=== PATIENT | female | born 1960 | race Hispanic/Latino ===

== ENCOUNTER → 2017-08-07 | Day surgery (SDC) | payer MEDICARE ==
[~2017-08-07] MED LIST: ABILIFY5 MG PO; ASPIR 8181 MG PO; BREO PO; CETIRIZINE HCL10 MG PO; CLONAZEPAM0.5 MG PO; CYMBALTA30 MG PO; FENTANYL CITRATE/PF 100MCG/2 ML INJ ONE; GABAPENTIN300 MG PO; IOPAMIDOL 200 MG/ML 20 ML VIAL IT ONE; IRON SUPPLEMEN325 MG PO; LAMOTRIGINE25 M1 PO; LEVOTHYROXINE50 MCG PO; LIDOCAINE HCL 1% 30ML-PF VIAL ONE; LISINOPRIL2.5 MG PO; METFORMIN HCL500 MG PO; METOPROLOL TART50 MG PO; MIDAZOLAM HCL 2 MG/2 ML VIAL ONE; NORCO 10-325 T1 EACH PO; PROPOFOL IV EMULSION 10 MG/ML 20 ML VIAL ONE; ROCURONIUM BROMIDE 10 MG/ML 5ML VIAL ONE; SUCCINYLCHOLINE 200 MG/10 ML SYR ONE; TRIAMCINOLONE ACET 40 MG/ML VIAL ONE; VIT C PO; VIT D3 PO; VITB12 PO
== END | disposition home or self-care (01) ==
LOC: OR 06:01
PROVIDERS: ATTEND Physical Medicine & Rehabilitation Pain Medicine
DX: M17.11 Unilateral primary osteoarthritis, right knee (principal); M94.261 Chondromalacia, right knee; M47.816 Spondylosis without myelopathy or radiculopathy, lumbar region; M46.1 Sacroiliitis, not elsewhere classified; M54.16 Radiculopathy, lumbar region; S90.32XA Contusion of left foot, initial encounter; M25.552 Pain in left hip; M25.551 Pain in right hip; M53.3 Sacrococcygeal disorders, not elsewhere classified; G47.33 Obstructive sleep apnea (adult) (pediatric); J44.9 Chronic obstructive pulmonary disease, unspecified; E11.9 Type 2 diabetes mellitus without complications; I10 Essential (primary) hypertension; E03.9 Hypothyroidism, unspecified; F32.9 Major depressive disorder, single episode, unspecified; X58.XXXA Exposure to other specified factors, initial encounter; Z68.37 Body mass index [BMI] 37.0-37.9, adult; Z91.81 History of falling
CPT/HCPCS: 20610; 36415; 76000; 82948; 93005; J2001; J2250; J3301; Q9966

== ENCOUNTER → 2017-12-25 | Day surgery (SDC) | payer MEDICARE ==
[2017-12-24 11:13] LABS: BASOPHILS # (AUTO) 0.1 (0.0-0.1); BASOPHILS % 0.6 % (0.0-1.0); EOSINOPHILS # (AUTO) 0.3 (0.0-0.4); EOSINOPHILS % 3.8 % (0.0-6.0); HEMATOCRIT 37.4 % (34.2-44.1); HEMOGLOBIN 12.7 g/dL (12.0-16.0); LYMPHOCYTES # (AUTO) 2.5 (1.0-3.2); LYMPHOCYTES % 30.9 % (18.0-39.1); MEAN CORPUSCULAR VOLUME 94.2 fL (81-99); MONOCYTES # (AUTO) 0.9 (0.2-0.8); MONOCYTES % 11.1 % (4.4-11.3); NEUTROPHILS # (AUTO) 4.2 (2.1-6.9); NEUTROPHILS % 53.3 % (38.7-80.0); PLATELET COUNT 369 x10e3/uL (140-360); RED BLOOD COUNT 3.97 x10e6/uL (3.6-5.1); RED CELL DISTRIBUTION WIDTH 12.4 % (11.7-14.4)
[~2017-12-25] MED LIST changes: +BREO INH; +LIDOCAINE HCL 2% LOCAL INJ 5 ML SDV VIAL INJ ONE; +OMEPRAZOLE40 MG PO; +PROAIR HFA INH8.5 GM INH; -ROCURONIUM BROMIDE 10 MG/ML 5ML VIAL ONE; -SUCCINYLCHOLINE 200 MG/10 ML SYR ONE
== END | disposition home or self-care (01) ==
LOC: OR 05:24
PROVIDERS: ATTEND Physical Medicine & Rehabilitation Pain Medicine
DX: M46.1 Sacroiliitis, not elsewhere classified (principal); M54.16 Radiculopathy, lumbar region; M47.816 Spondylosis without myelopathy or radiculopathy, lumbar region; M94.261 Chondromalacia, right knee; S80.01XA Contusion of right knee, initial encounter; S90.32XA Contusion of left foot, initial encounter; M17.11 Unilateral primary osteoarthritis, right knee; M79.671 Pain in right foot; M25.552 Pain in left hip; M25.551 Pain in right hip; G62.9 Polyneuropathy, unspecified; I10 Essential (primary) hypertension; E11.9 Type 2 diabetes mellitus without complications; E03.9 Hypothyroidism, unspecified; J44.9 Chronic obstructive pulmonary disease, unspecified; G47.33 Obstructive sleep apnea (adult) (pediatric); F32.9 Major depressive disorder, single episode, unspecified; F41.9 Anxiety disorder, unspecified; X58.XXXA Exposure to other specified factors, initial encounter; Z88.0 Allergy status to penicillin; Z01.810 Encounter for preprocedural cardiovascular examination; Z01.812 Encounter for preprocedural laboratory examination; Z79.84 Long term (current) use of oral hypoglycemic drugs; Z87.891 Personal history of nicotine dependence
CPT/HCPCS: 36415 ×2; 82948; 85025; 93005; G0260; J2001 ×2; J2250; J3301; Q9966; 77002

== ENCOUNTER → 2018-06-25 | Day surgery (SDC) | payer MEDICARE ==
[2018-06-23 12:44] LABS: BASOPHILS # (AUTO) 0.1 (0.0-0.1); BASOPHILS % 0.7 % (0.0-1.0); EOSINOPHILS # (AUTO) 0.1 (0.0-0.4); EOSINOPHILS % 1.6 % (0.0-6.0); HEMATOCRIT 40.3 % (34.2-44.1); HEMOGLOBIN 13.3 g/dL (12.0-16.0); LYMPHOCYTES # (AUTO) 2.2 (1.0-3.2); LYMPHOCYTES % 26.5 % (18.0-39.1); MEAN CORPUSCULAR HEMOGLOBIN 31.3 pg (28-32); MEAN CORPUSCULAR VOLUME 94.8 fL (81-99); MONOCYTES # (AUTO) 0.9 (0.2-0.8); MONOCYTES % 10.7 % (4.4-11.3); NEUTROPHILS % 60.1 % (38.7-80.0); PLATELET COUNT 415 x10e3/uL (140-360); RED BLOOD COUNT 4.25 x10e6/uL (3.6-5.1); RED CELL DISTRIBUTION WIDTH 13.4 % (11.7-14.4)
[~2018-06-25] MED LIST changes: +BUPIVACAINE 0.25% 30ML SDV INJ ONE; -FENTANYL CITRATE/PF 100MCG/2 ML INJ ONE; -LIDOCAINE HCL 2% LOCAL INJ 5 ML SDV VIAL INJ ONE; -MIDAZOLAM HCL 2 MG/2 ML VIAL ONE
[2018-06-25 08:25] VITALS: BP 132/77
== END | disposition home or self-care (01) ==
LOC: OR 05:40
PROVIDERS: ATTEND Physical Medicine & Rehabilitation Pain Medicine
DX: M70.61 Trochanteric bursitis, right hip (principal); M46.1 Sacroiliitis, not elsewhere classified; M54.16 Radiculopathy, lumbar region; M17.11 Unilateral primary osteoarthritis, right knee; M47.816 Spondylosis without myelopathy or radiculopathy, lumbar region; G62.9 Polyneuropathy, unspecified; M25.511 Pain in right shoulder; G47.33 Obstructive sleep apnea (adult) (pediatric); I10 Essential (primary) hypertension; R00.1 Bradycardia, unspecified; E78.5 Hyperlipidemia, unspecified; E11.9 Type 2 diabetes mellitus without complications; E03.9 Hypothyroidism, unspecified; J44.9 Chronic obstructive pulmonary disease, unspecified; F32.9 Major depressive disorder, single episode, unspecified; F41.9 Anxiety disorder, unspecified; Z88.0 Allergy status to penicillin; Z01.810 Encounter for preprocedural cardiovascular examination; Z01.812 Encounter for preprocedural laboratory examination; Z79.84 Long term (current) use of oral hypoglycemic drugs
CPT/HCPCS: 20610; 36415 ×2; 82948; 85025; 93005; J2001; J2704; J3301; Q9967

== ENCOUNTER → 2018-11-18 | Day surgery (SDC) | payer MEDICARE ==
[~2018-11-18] MED LIST changes: -BUPIVACAINE 0.25% 30ML SDV INJ ONE; +FENTANYL CITRATE/PF 100MCG/2 ML INJ ONE; -IOPAMIDOL 200 MG/ML 20 ML VIAL IT ONE; -LIDOCAINE HCL 1% 30ML-PF VIAL ONE; +METOCLOPRAMIDE HCL 10 MG/2ML VIAL ONE; +MIDAZOLAM HCL 2 MG/2 ML VIAL ONE; -PROPOFOL IV EMULSION 10 MG/ML 20 ML VIAL ONE; +PROPOFOL IV EMULSION 10 MG/ML 50 ML VIAL ONE; -TRIAMCINOLONE ACET 40 MG/ML VIAL ONE
--- OUTSIDE RECORDS SUMMARY | 2018-11-18 08:44 | XMS REPORT ---
Author Author [facility] Address Unknown Phone Unavailable Care Team Providers Care Digital Business Analyst Name Role Phone Unavailable Unavailable Problems This patient has no known problems. Allergies, Adverse Reactions, Alerts This patient has no known allergies or adverse reactions. Medications This patient has no known medications. Encounters Start Date/Time End Date/Time Encounter Type Admission Type Attending Clinicians Care Facility Care Department Encounter ID 2018-09-24 05:08:00 2018-09-24 05:08:00 Outpatient [id number]
[2018-11-18 09:59] LABS: BASOPHILS # (AUTO) 0.1 (0.0-0.1); BASOPHILS % 0.8 % (0.0-1.0); EOSINOPHILS # (AUTO) 0.1 (0.0-0.4); EOSINOPHILS % 1.2 % (0.0-6.0); HEMOGLOBIN 13.9 g/dL (12.0-16.0); LYMPHOCYTES # (AUTO) 2.3 (1.0-3.2); LYMPHOCYTES % 30.2 % (18.0-39.1); MEAN CORPUSCULAR HEMOGLOBIN 32.6 pg (28-32); MEAN CORPUSCULAR HGB CONC 34.8 g/dL (31-35); MEAN CORPUSCULAR VOLUME 93.7 fL (81-99); MONOCYTES # (AUTO) 0.7 (0.2-0.8); MONOCYTES % 9.6 % (4.4-11.3); NEUTROPHILS # (AUTO) 4.3 (2.1-6.9); NEUTROPHILS % 57.9 % (38.7-80.0); PLATELET COUNT 430 x10e3/uL (140-360); RED BLOOD COUNT 4.27 x10e6/uL (3.6-5.1); RED CELL DISTRIBUTION WIDTH 12.4 % (11.7-14.4)
[2018-11-18 11:00] VITALS: BP 120/88
--- NOTE | 2018-11-18 11:21 | Operative Report ---
DATE OF PROCEDURE: 11/18/2018 SURGEON: King Villeda MD PROCEDURE: Esophagogastroduodenoscopy with biopsies and esophageal dilatation. INDICATIONS FOR EGD: Dysphagia, nausea, and vomiting. MEDICATIONS: The patient was done under MAC, please see anesthesiologist's note. PROCEDURE IN DETAIL: With the patient in left lateral decubitus position, a flexible fiberoptic Olympus gastroscope was introduced into the esophagus under direct visualization without any difficulty. There was some patchy erythema noted in distal esophagus. The esophagus was then dilated to size 54-Ugandan White. The scope was then advanced with ease into the stomach and the patient is apparently status post Maxi-en-Y. The anastomosis was approximately 10 cm distal to the GE junction. It was patent. There were no marginal ulcers. The efferent loop was patent. The scope was then retroflexed in the gastric stump and some postoperative changes were noted in the fundus. The cardia appeared to be within normal limits. The scope was then straightened out, and biopsies were obtained from the gastric stump. The scope was subsequently withdrawn. The patient tolerated the procedure well. IMPRESSION: 1. Distal esophagitis, mild. 2. Esophagus dilated to size 54-Ugandan White. 3. Status post Maxi-en-Y. Anastomosis intact. No evidence of marginal ulcers. 4. Gastric stump, gastritis, biopsied. Biopsies sent to stain for Helicobacter pylori. PLAN: Follow up histology. Increase omeprazole to 40 mg one p.o. a.c. b.i.d. Add Carafate 1 g p.o. a.c. t.i.d. and at bedtime. MD DEENA Wilson/HERBERTH /[id number] cc: Freeman Dutta MD
== END | disposition home or self-care (01) ==
LOC: OR 08:41
PROVIDERS: ATTEND Internal Medicine Gastroenterology
DX: K21.0 Gastro-esophageal reflux disease with esophagitis (principal); K29.70 Gastritis, unspecified, without bleeding; R13.10 Dysphagia, unspecified; R11.2 Nausea with vomiting, unspecified; Z98.0 Intestinal bypass and anastomosis status; I10 Essential (primary) hypertension; E03.9 Hypothyroidism, unspecified; E11.9 Type 2 diabetes mellitus without complications; Z79.84 Long term (current) use of oral hypoglycemic drugs; J44.9 Chronic obstructive pulmonary disease, unspecified; G47.33 Obstructive sleep apnea (adult) (pediatric)
CPT/HCPCS: 36415; 43239; 43450; 82948; 85025; 88305; 88312; 93005; J2250; J2704; J2765; 88304

== ENCOUNTER → 2019-01-21 | Day surgery (SDC) | payer MEDICARE ==
[~2019-01-21] MED LIST changes: +BUPIVACAINE 0.25% 30ML SDV INJ ONE; +DEXAMETHASONE SOD PHOS 10 MG/1 ML VIAL ONE; +EPHEDRINE SULFATE INJ 50 MG/10 ML SYR ONE; +IOPAMIDOL 200 MG/ML 20 ML VIAL IT ONE; +LIDOCAINE HCL 1% 30ML-PF VIAL ONE; -METOCLOPRAMIDE HCL 10 MG/2ML VIAL ONE; +PROPOFOL IV EMULSION 10 MG/ML 20 ML VIAL ONE; -PROPOFOL IV EMULSION 10 MG/ML 50 ML VIAL ONE
--- OUTSIDE RECORDS SUMMARY | 2019-01-21 05:12 | XMS REPORT | Clinical Summary ---
Author Author [facility] Address Unknown Phone Unavailable Care Team Providers Care Director Of Dietary Name Role Phone Asked, No Pcp PCP Unavailable Allergies Comments Active Allergy Reactions Severity Noted Date Penicillins 11/26/2018 Medications End Date Status Medication Sig Dispensed Refills Start Date Active atorvastatin (LIPITOR) 20 Take 20 mg by 0 MG tablet mouth daily. Default OP ins Active baclofen (LIORESAL) 10 MG Take 10 mg by 0 tablet mouth nightly. Active clonAZEPAM (KlonoPIN) 1 Take 1 mg by 0 MG tablet mouth 2 (two) times a day as needed for seizures. Active DULoxetine (CYMBALTA) 30 Take 30 mg by 0 MG capsule mouth daily. Active gabapentin (NEURONTIN) Take 300 mg 0 300 mg capsule by mouth 3 (three) times a day. Active HYDROcodone-acetaminophen Take 1 tablet 0 (NORCO) 10-325 mg per by mouth tablet every 6 (six) hours as needed for moderate pain. Active umeclidinium-vilanterol Inhale 1 puff 0 (ANORO ELLIPTA) 62.5-25 daily. mcg/actuation blister with device Active albuterol (PROAIR Inhale 2 0 HFA,PROVENTIL puffs every 6 HFA,VENTOLIN HFA) 90 (six) hours mcg/actuation inhaler as needed. Active levothyroxine (SYNTHROID, Take 75 mcg 0 LEVOXYL) 75 mcg tablet by mouth daily. Active metFORMIN (GLUCOPHAGE) Take 500 mg 0 500 mg tablet by mouth daily. Active metoprolol tartrate Take 50 mg by 0 (LOPRESSOR) 50 mg tablet mouth daily. Active omeprazole (PriLOSEC) 40 Take 40 mg by 0 MG capsule mouth 2 (two) times a day. Active sucralfate (CARAFATE) 1 Take 1 g by 0 gram tablet mouth 4 (four) times a day. Active Problems Not on file Encounters Care Team Description Date Type Specialty Nader Gomez MD Alcoholic intoxication without complication (HCC) (Primary Dx); Suicidal ideations 11/26/2018 Emergency Emergency Medicine - 11/27/2018 11/26/2018 Travel after 01/20/2018 Social History Date Tobacco Use Types Packs/Day Years Used Current Every Day Smoker 0.1 Smokeless Tobacco: Never Used Tobacco Cessation: Ready to Quit: Yes Drinks/Week oz/Week Comments Alcohol Use Yes Sex Assigned at Date Recorded Not on file Industry Job Start Date Occupation Not on file Not on file Not on file Travel End Travel History Travel Start No recent travel history available. Last Filed Vital Signs Reading Time Taken Comments Vital Sign 131/68 11/27/2018 9:18 PM CDT Blood Pressure 59 11/27/2018 9:18 PM CDT Pulse 36.4 C (97.5 F) 11/27/2018 9:18 PM CDT Temperature 15 11/27/2018 9:18 PM CDT Respiratory Rate 99% 11/27/2018 9:18 PM CDT Oxygen Saturation - - Inhaled Oxygen Concentration 79.4 kg (175 lb) 11/26/2018 9:27 PM CDT Weight 167.6 cm (5' 6") 11/26/2018 9:27 PM CDT Height 28.25 11/26/2018 9:27 PM CDT Body Mass Index Plan of Treatment Not on file Procedures Comments Procedure Name Priority Date/Time Associated Diagnosis ALCOHOL LEVEL, BLOOD STAT 11/27/2018 5:34 AM CDT GRAM STAIN Routine 11/26/2018 11:14 PM CDT URINE CULTURE Routine 11/26/2018 11:14 PM CDT ESTIMATED GFR STAT 11/26/2018 10:50 PM CDT THYROID STIMULATING STAT 11/26/2018 HORMONE 10:50 PM CDT ACETAMINOPHEN LEVEL STAT 11/26/2018 10:50 PM CDT SALICYLATE LEVEL STAT 11/26/2018 10:50 PM CDT HCG QUALITATIVE, SERUM STAT 11/26/2018 SCREEN 10:50 PM CDT LIPASE LEVEL STAT 11/26/2018 10:50 PM CDT HEPATIC FUNCTION PANEL STAT 11/26/2018 10:50 PM CDT MAGNESIUM LEVEL STAT 11/26/2018 10:50 PM CDT TROPONIN STAT 11/26/2018 10:50 PM CDT ALCOHOL LEVEL, BLOOD STAT 11/26/2018 10:50 PM CDT CREATINE KINASE, TOTAL STAT 11/26/2018 (CPK) 10:50 PM CDT HC COMPLETE BLD COUNT STAT 11/26/2018 W/AUTO DIFF 10:50 PM CDT BASIC METABOLIC PANEL STAT 11/26/2018 10:50 PM CDT URINE DRUGS OF ABUSE STAT 11/26/2018 SCREEN 10:45 PM CDT HCG QUALITATIVE, URINE Routine 11/26/2018 SCREEN 10:45 PM CDT URINALYSIS SCREEN AND Routine 11/26/2018 MICROSCOPY, WITH REFLEX 10:45 PM CDT TO CULTURE ECG 12-LEAD STAT 11/26/2018 10:26 PM CDT ECG ED PRELIMINARY Routine 11/26/2018 INTERPRETATION 10:00 PM CDT after 01/20/2018 Results * Alcohol level, blood (11/27/2018 5:34 AM CDT) Only the most recent of 2 results within the time period is included. Alcohol 23.0 mg/dL [facility] Comment: HINDUISM Normal [facility] Detected Legal Intoxication in [place] 80 mg/dL (0.08%) Toxic Concentration 200 mg/dL (0.2%) Potentially Fatal 350-500 mg/dL (0.35%-0.5%) Alcohol percent 0.023 % [facility] Specimen Blood Performing Organization Address City/State/Zipcode Phone Number [facility] [address] [phone] PATHOLOGY AND [facility] [address] [facility] [place] [address] HOSPITAL * Gram stain (11/26/2018 11:14 PM CDT) Pathologist [facility] Gram stain Few WBC's [facility] result Many Gram positive rods HINDUISM Comment: HOSPITAL Specimen Information Specimen Source: Urine Specimen Site: Clean catch Specimen Urine Performing Organization Address City/[facility] Phone Number [facility] [place] [address] [place] [address] HOSPITAL * Urine culture (11/26/2018 11:14 PM CDT) [facility] Urine culture Mixed margoth <=10-3 col/cc [facility] isolate Comment: HINDUISM Specimen Information HOSPITAL Specimen Source: Urine Specimen Site: Clean catch Specimen Urine Performing Organization Address [facility] Phone Number [facility] [place] [place] [address] [place] [address] HOSPITAL * Estimated GFR (11/26/2018 10:50 PM CDT) [facility] Estimated GFR 80 mL/min/1.73 m2 [facility] G[facility] >=90 Normal or high G2 60-89Mildly decreased [id number] Mildly to moderately decreased [id number] Moderately to severely decreased G4 15-29Severely decreased G5 <15Kidney failure The eGFR was calculated using the Chronic Kidney Disease Epidemiology Collaboration (CKD-EPI) equation. Interpretation is based on recommendations of the National Kidney Foundation-Kidney Disease Outcomes Quality Initiative (NKF-KDOQI) published in 2014. Specimen Plasma specimen Performing Organization Address City/[facility]/Zipcode Phone Number [facility] [address] [place] [phone] PATHOLOGY AND [facility] [address] [facility] [place] [address] HOSPITAL * Troponin (11/26/2018 10:50 PM CDT) [facility] Troponin <0.006 0.000 - 0.040 ng/mL [facility] Comment: [facility] changed methodology effective: HOSPITAL 10/06/2018 at 10:00 am The new method has a 99th percentile cutoff of 0.040 ng/mL Specimen Plasma specimen Performing Organization Address City/[facility] Phone Number [place] [id number] [place] [address] PATHOLOGY AND GENOMIC MEDICINE [id number] [place] [address] * CBC with platelet and differential (11/26/2018 10:50 PM CDT) WBC 7.2 4.2 - 11.0 k/uL [facility] RBC 4.07 4.04 - 5.86 m/uL [facility] HGB 13.0 11.5 - 15.3 g/dL [facility] HCT 39.5 34.0 - 45.0 % [facility] MCV 97.1 80.0 - 98.0 fL [facility] MCH 31.9 27.0 - 34.0 pg [facility] MCHC 32.9 31.5 - 36.5 g/dL [facility] RDW - SD 44.2 37.0 - 51.0 fL [facility] MPV 9.4 7.4 - 10.4 fL [facility] Platelet count 360 150 - 400 k/uL [facility] Nucleated RBC 0.00 /100 WBC [facility] Neutrophils 55.3 36.0 - 66.0 % [facility] Lymphocytes 35.8 24.0 - 44.0 % [facility] Monocytes 7.3 (H) 0.0 - 6.0 % [facility] Eosinophils 0.7 0.0 - 6.0 % [facility] Basophils 0.6 0.0 - 1.2 % [facility] Immature 0.3 0.0 - 1.0 % [facility] granulocytes [facility] Specimen Blood Performing Organization Address City/[facility]/Zipcode Phone Number [place] [phone] [place] [address] PATHOLOGY AND GENOMIC MEDICINE [facility] [address] [place] [address] HOSPITAL * hCG qualitative, serum screen (11/26/2018 10:50 PM CDT) Pathologist [facility] Department hCG Negative [facility] qualitative, Comment: HINDUISM serum The manufacturers stated WHEELER sensitivity of HcG test for HOSPITAL serum is >/=10 mIU/ml and urine is >/=20mIU/ml. Specimen Blood Performing Organization Address [facility] Phone Number [facility] [address] [facility] [place] [address] PATHOLOGY AND GENOMIC MEDICINE [address] * Thyroid stimulating hormone (11/26/2018 10:50 PM CDT) Pathologist [facility] TSH 5.04 (H) 0.27 - 4.20 uIU/mL [facility] Specimen Plasma specimen Performing Organization Address City/[facility] Phone Number [facility] [address] [place] [address] PATHOLOGY [place] [address] HOSPITAL * Magnesium level (11/26/2018 10:50 PM CDT) Pathologist [facility] Magnesium 2.30 1.60 - 2.60 mg/dL [facility] Specimen Plasma specimen Performing Organization Address City/[facility] Phone Number [facility] [address] [place] [address] PATHOLOGY AND GENOMIC MEDICINE [facility] [address] [place] [address] * Lipase level (11/26/2018 10:50 PM CDT) Pathologist [facility] Lipase 34 13 - 60 U/L [facility] Specimen Plasma specimen Performing Organization Address City/[facility] Phone [facility] [address] [place] [address] PATHOLOGY AND GENOMIC MEDICINE [facility] [address] [place] [address] HOSPITAL * Creatine kinase, total (CPK) (11/26/2018 10:50 PM CDT) Creatine kinase 46 26 - 192 U/L [facility] Specimen Plasma specimen Performing Organization Address City/[facility] Phone Number [facility] [address] [place] [address] PATHOLOGY AND GENOMIC MEDICINE [facility] [address] * Acetaminophen level (11/26/2018 10:50 PM CDT) Acetaminophen <15.3 10.0 - 30.0 ug/mL [facility] level Comment: HINDUISM Therapeutic WHEELER 10-30 HOSPITAL ug/mL Possible Toxicity 150-200 ug/mL Probable Toxicity >200 ug/mL Specimen Blood Performing Organization Address City/[facility] Phone Number [facility] [address] [place] [address] PATHOLOGY AND GENOMIC MEDICINE [place] [phone] * Salicylate level (11/26/2018 10:50 PM CDT) Salicylate <0.4 (L) 3.0 - 30.0 mg/dL [facility] Comment: HINDUISM Therapeutic Range: WHEELER 5 - 30 mg/dL HOSPITAL Specimen Blood Performing Organization Address City/[facility] Phone Number [facility] [address] [place] [address] PATHOLOGY AND GENOMIC MEDICINE [place] [address] [place] [address] HOSPITAL * Hepatic function panel (11/26/2018 10:50 PM CDT) Albumin 4.0 3.5 - 5.0 g/dL [facility] Total bilirubin <0.3 0.2 - 1.2 mg/dL [facility] Bilirubin <0.2 0.0 - 0.4 mg/dL [facility] direct [facility] Alkaline 76 0 - 104 U/L [facility] phosphatase [facility] Protein 7.7 6.3 - 8.3 g/dL [facility] ALT 20 5 - 50 U/L [facility] AST 24 10 - 35 U/L [facility] Specimen Plasma specimen Performing Organization Address City/State/Zipcode Phone Number [facility] [address] [place] [address] PATHOLOGY AND GENOMIC MEDICINE [address] * Basic metabolic panel (11/26/2018 10:50 PM CDT) [facility] Sodium 138 135 - 150 mEq/L [facility] Potassium 4.0 3.5 - 5.0 mEq/L [facility] Chloride 101 98 - 112 mEq/L [facility] CO2 20 (L) 24 - 31 mmol/L [facility] Anion gap 17@ANIO (H) 7 - 15 mEq/L [facility] BUN 9 7 - 18 mg/dL [facility] Creatinine 0.80 0.50 - 0.90 mg/dL [facility] Glucose 128 (H) 65 - 100 mg/dL [facility] Calcium 9.6 8.3 - 10.2 mg/dL [facility] Specimen Plasma specimen Performing Organization Address City/[facility]/Zipcode Phone Number [facility] [address] [place] [address] PATHOLOGY AND GENOMIC MEDICINE [address] * Urinalysis screen and microscopy, with reflex to culture (11/26/2018 10:45 PM CDT) Specimen site Clean catch [facility] Color, UA Straw [facility] Appearance, UA Slightly-Cloudy [facility] Specific 1.003 1.001 - 1.035 [facility] gravity, UA [facility] pH, UA 7.0 5.0 - 8.5 [facility] Protein, UA Negative Negative [facility] Glucose, UA Negative Negative [facility] Ketones, UA Negative Negative [facility] Bilirubin, UA Negative Negative [facility] Blood, UA Negative Negative [facility] Nitrite, UA Negative Negative [facility] Urobilinogen, Negative <2.0 [facility] Leukocyte Trace (A) Negative [facility] esterase, UA [facility] Epithelial Many /HPF [facility] cells, UA [facility] WBC, UA 2 0 - 5 /HPF [facility] RBC, UA 1 0 - 5 /HPF [facility] Bacteria, UA Trace None seen [facility] Yeast, UA None seen [facility] Yeast with None seen [facility] pseudohyphae, [facility] Specimen Urine Performing Organization Address City/[facility] Phone Number [facility] [address] [place] [address] PATHOLOGY [place] [address] HOSPITAL * hCG qualitative, urine screen (11/26/2018 10:45 PM CDT) Pathologist [facility] hCG Negative Negative [facility] qualitative, Comment: HINDUISM urine The manufacturers stated WHEELER sensitivity of HcG test for HOSPITAL serum is >/=10 mIU/ml and urine is >/=20mIU/ml. Specimen Urine Performing Organization Address City/[facility] Phone Number [place] [phone] [place] [address] PATHOLOGY [place] [address] HOSPITAL * Urine drugs of abuse screen (11/26/2018 10:45 PM CDT) Pathologist [facility] Amphetamine Negative [facility] screen, urine [facility] Barbiturate Negative [facility] screen, urine [facility] Benzodiazepine Negative [place] screen, urine [facility] Cocaine screen, Negative [facility] urine [facility] Methadone Negative [place] metabolite HINDUISM (EDDP), urine [facility] Opiates screen, Positive (A) [facility] urine [facility] Phencyclidine Negative [place] screen, urine [facility] Cannabinoid Negative [facility] screen, urine Comment: [facility]UISM [facility] Amphetamines 1000 ng/mL Barbiturates 200 ng/mL Benzodiazepines 300 ng/mL Cocaine 300 ng/mL Methadone 300 ng/mL Opiates 300 ng/mL Oxycodone 300 ng/mL Phencyclidine 25 ng/mL Cannabinoids 50 ng/mL Tricyclics 1000 ng/mL Results are from screening tests and should only be used for medical evaluation. Drug testing for legal purposes requires definitive (or confirmatory) testing methods, which are available upon request. Contact the laboratory if definitive testing is required. Specimen Urine Performing Organization Address City/State/[facility] Phone Number [facility] [address] [place] [address] PATHOLOGY AND GENOMIC MEDICINE [facility] [address] * ECG 12 lead (11/26/2018 10:26 PM CDT) Ventricular 74 [facility] rate Atrial rate [address] interval 160 [facility] QRSD interval 88 [facility] QT interval 380 [facility] QTC interval 421 [facility] P axis 1 50 [facility] QRS axis 1 9 [facility] T wave axis 57 [facility] EKG impression Normal sinus rhythm-Normal [facility] MUSE ECG-No previous ECGs available- Specimen Narrative Performed At Performing Organization Address [facility] Phone Number [facility] [address] [place] [address] * ECG ED Preliminary Interpretation - Not an Order (11/26/2018 10:00 PM CDT) Narrative Performed At Nader Gomez MD 11/28/20184:20 PM ECG ED Preliminary Interpretation - Not an Order Performed by: Nader Gomez MD Authorized by: Nader Gomez MD ECG reviewed by ED Physician in the absence of a duplicator punch operator: yes Interpretation: Interpretation: abnormal Rate: ECG rate:74 ECG rate assessment: normal Rhythm: Rhythm: sinus rhythm Ectopy: Ectopy: none QRS: QRS axis:Left QRS intervals:Normal Conduction: Conduction: normal ST segments: ST segments:Normal T waves: T waves: normal after 01/20/2018 Insurance Type Payer Benefit Subscriber ID Effective Phone Address Plan / Dates Group 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
[2019-01-21 06:29] LABS: BASOPHILS % 0.4 % (0.0-1.0); EOSINOPHILS # (AUTO) 0.1 (0.0-0.4); EOSINOPHILS % 1.4 % (0.0-6.0); HEMATOCRIT 34.2 % (34.2-44.1); HEMOGLOBIN 11.4 g/dL (12.0-16.0); LYMPHOCYTES # (AUTO) 2.3 (1.0-3.2); MEAN CORPUSCULAR HEMOGLOBIN 31.7 pg (28-32); MEAN CORPUSCULAR HGB CONC 33.3 g/dL (31-35); MONOCYTES # (AUTO) 0.9 (0.2-0.8); MONOCYTES % 12.6 % (4.4-11.3); NEUTROPHILS # (AUTO) 3.6 (2.1-6.9); NEUTROPHILS % 52.3 % (38.7-80.0); PLATELET COUNT 335 x10e3/uL (140-360)
[2019-01-21 08:20] VITALS: BP 102/66
== END | disposition home or self-care (01) ==
LOC: OR 05:09
PROVIDERS: ATTEND Physical Medicine & Rehabilitation Pain Medicine
DX: M54.16 Radiculopathy, lumbar region (principal); M53.3 Sacrococcygeal disorders, not elsewhere classified; M47.896 Other spondylosis, lumbar region; M46.1 Sacroiliitis, not elsewhere classified; M17.11 Unilateral primary osteoarthritis, right knee; M25.511 Pain in right shoulder; M70.61 Trochanteric bursitis, right hip; M94.261 Chondromalacia, right knee; G62.9 Polyneuropathy, unspecified; J44.9 Chronic obstructive pulmonary disease, unspecified; I10 Essential (primary) hypertension; E78.5 Hyperlipidemia, unspecified; E03.9 Hypothyroidism, unspecified; E11.9 Type 2 diabetes mellitus without complications; K21.9 Gastro-esophageal reflux disease without esophagitis; E66.9 Obesity, unspecified; F32.9 Major depressive disorder, single episode, unspecified; F41.9 Anxiety disorder, unspecified; Z88.0 Allergy status to penicillin; Z79.84 Long term (current) use of oral hypoglycemic drugs; Z68.32 Body mass index [BMI] 32.0-32.9, adult; Z91.81 History of falling; Z87.891 Personal history of nicotine dependence
CPT/HCPCS: 36415; 62323; 82948; 85025; J1100; J2001; J2250; J2704; J3010; Q9967; 77003

== ENCOUNTER → 2020-09-21 | Day surgery (SDC) | payer MEDICARE ==
[2020-09-20 13:16] LABS: BASOPHILS # (AUTO) 0.1 (0.0-0.1); BASOPHILS % 0.7 % (0.0-1.0); EOSINOPHILS # (AUTO) 0.2 (0.0-0.4); EOSINOPHILS % 2.5 % (0.0-6.0); HEMATOCRIT 34.5 % (34.2-44.1); HEMOGLOBIN 11.5 g/dL (12.0-16.0); LYMPHOCYTES % 26.8 % (18.0-39.1); MEAN CORPUSCULAR HEMOGLOBIN 31.7 pg (28-32); MEAN CORPUSCULAR HGB CONC 33.3 g/dL (31-35); MONOCYTES # (AUTO) 0.7 (0.2-0.8); MONOCYTES % 9.3 % (4.4-11.3); NEUTROPHILS # (AUTO) 4.4 (2.1-6.9); NEUTROPHILS % 60.3 % (38.7-80.0); PLATELET COUNT 367 x10e3/uL (140-360); RED BLOOD COUNT 3.63 x10e6/uL (3.6-5.1); RED CELL DISTRIBUTION WIDTH 13.7 % (11.7-14.4)
[~2020-09-21] MED LIST changes: -BUPIVACAINE 0.25% 30ML SDV INJ ONE; +CLONAZEPAM1 MG PO; +CYMBALTA20 MG PO; -DEXAMETHASONE SOD PHOS 10 MG/1 ML VIAL ONE; -EPHEDRINE SULFATE INJ 50 MG/10 ML SYR ONE; +LIDOCAINE HCL 2% LOCAL INJ 5 ML SDV VIAL INJ ONE; +POVIDONE IODINE 0.05% 0.05 % ML PO ONE; +TRIAMCINOLONE ACET 40 MG/ML VIAL ONE
[2020-09-21 06:45] VITALS: BP 127/71
== END | disposition home or self-care (01) ==
LOC: OR 05:24
PROVIDERS: ATTEND Physical Medicine & Rehabilitation Pain Medicine
DX: M16.11 Unilateral primary osteoarthritis, right hip (principal); M70.61 Trochanteric bursitis, right hip; M17.11 Unilateral primary osteoarthritis, right knee; M46.1 Sacroiliitis, not elsewhere classified; M94.261 Chondromalacia, right knee; R93.6 Abnormal findings on diagnostic imaging of limbs; M47.896 Other spondylosis, lumbar region; G47.33 Obstructive sleep apnea (adult) (pediatric); J44.9 Chronic obstructive pulmonary disease, unspecified; I10 Essential (primary) hypertension; E11.9 Type 2 diabetes mellitus without complications; E03.9 Hypothyroidism, unspecified; K21.9 Gastro-esophageal reflux disease without esophagitis; F17.210 Nicotine dependence, cigarettes, uncomplicated; Z88.0 Allergy status to penicillin; Z01.810 Encounter for preprocedural cardiovascular examination; Z01.812 Encounter for preprocedural laboratory examination; Z20.822 Contact with and (suspected) exposure to COVID-19; Z79.84 Long term (current) use of oral hypoglycemic drugs
CPT/HCPCS: 20610; 36415 ×2; 76000; 77002; 82948; 85025; 93005; J2001 ×2; J2250; J2704; J3010; J3301; Q9967; U0002

== ENCOUNTER → 2020-10-19 | Day surgery (SDC) | payer MEDICARE ==
[~2020-10-19] MED LIST changes: -FENTANYL CITRATE/PF 100MCG/2 ML INJ ONE
[2020-10-19 07:20] VITALS: BP 109/75
== END | disposition home or self-care (01) ==
LOC: OR 05:30
PROVIDERS: ATTEND Physical Medicine & Rehabilitation Pain Medicine
DX: M16.12 Unilateral primary osteoarthritis, left hip (principal); G47.33 Obstructive sleep apnea (adult) (pediatric); I10 Essential (primary) hypertension; E11.9 Type 2 diabetes mellitus without complications; Z88.0 Allergy status to penicillin; Z01.812 Encounter for preprocedural laboratory examination; Z20.822 Contact with and (suspected) exposure to COVID-19; Z79.84 Long term (current) use of oral hypoglycemic drugs
CPT/HCPCS: 20610; 36415; 77002; 82948; J2001 ×2; J2250; J2704; J3301; Q9967; U0002; 76000

== ENCOUNTER → 2021-04-19 | Day surgery (SDC) | payer MEDICARE ==
[2021-04-18 10:34] LABS: BASOPHILS % 0.5 % (0.0-1.0); EOSINOPHILS # (AUTO) 0.1 (0.0-0.4); HEMATOCRIT 34.5 % (34.2-44.1); HEMOGLOBIN 11.6 g/dL (12.0-16.0); LYMPHOCYTES % 26.4 % (18.0-39.1); MEAN CORPUSCULAR HGB CONC 33.6 g/dL (31-35); MEAN CORPUSCULAR VOLUME 95.3 fL (81-99); MONOCYTES # (AUTO) 0.7 (0.2-0.8); MONOCYTES % 8.5 % (4.4-11.3); NEUTROPHILS # (AUTO) 4.8 (2.1-6.9); NEUTROPHILS % 63.2 % (38.7-80.0); PLATELET COUNT 320 x10e3/uL (140-360); RED BLOOD COUNT 3.62 x10e6/uL (3.6-5.1); RED CELL DISTRIBUTION WIDTH 13.8 % (11.7-14.4)
[~2021-04-19] MED LIST changes: +BUPIVACAINE 0.25% 30ML SDV ONE; +DEXAMETHASONE SOD PHOS 10 MG/1 ML VIAL ONE; +FENTANYL CITRATE/PF 100MCG/2 ML INJ ONE; -LIDOCAINE HCL 2% LOCAL INJ 5 ML SDV VIAL INJ ONE; -TRIAMCINOLONE ACET 40 MG/ML VIAL ONE; +trelegy inhaler INH
[2021-04-19 07:25] VITALS: BP 117/69
== END | disposition home or self-care (01) ==
LOC: OR 05:22
PROVIDERS: ATTEND Physical Medicine & Rehabilitation Pain Medicine
DX: M54.16 Radiculopathy, lumbar region (principal); G47.33 Obstructive sleep apnea (adult) (pediatric); J44.9 Chronic obstructive pulmonary disease, unspecified; I10 Essential (primary) hypertension; E03.9 Hypothyroidism, unspecified; E11.9 Type 2 diabetes mellitus without complications; K21.9 Gastro-esophageal reflux disease without esophagitis; Z88.0 Allergy status to penicillin; Z01.810 Encounter for preprocedural cardiovascular examination; Z01.812 Encounter for preprocedural laboratory examination; Z20.822 Contact with and (suspected) exposure to COVID-19; Z79.84 Long term (current) use of oral hypoglycemic drugs; Z79.899 Other long term (current) drug therapy
CPT/HCPCS: 36415 ×2; 64483; 64484 ×2; 82948; 85025; 93005; J1100; J2001; J2250; J2704; J3010; Q9967; U0002; 77003

== ENCOUNTER → 2021-07-05 | Day surgery (SDC) | payer MEDICARE ==
[~2021-07-05] MED LIST changes: -BUPIVACAINE 0.25% 30ML SDV ONE; -DEXAMETHASONE SOD PHOS 10 MG/1 ML VIAL ONE; +LIDOCAINE HCL 2% LOCAL INJ 5 ML SDV VIAL INJ ONE; +TRIAMCINOLONE ACET 40 MG/ML VIAL ONE
[2021-07-05 07:00] VITALS: BP 128/72
== END | disposition home or self-care (01) ==
LOC: OR 05:16
PROVIDERS: ATTEND Physical Medicine & Rehabilitation Pain Medicine
DX: M16.11 Unilateral primary osteoarthritis, right hip (principal); M54.16 Radiculopathy, lumbar region; M46.1 Sacroiliitis, not elsewhere classified; M70.61 Trochanteric bursitis, right hip; M17.11 Unilateral primary osteoarthritis, right knee; M53.3 Sacrococcygeal disorders, not elsewhere classified; M94.261 Chondromalacia, right knee; S90.32XA Contusion of left foot, initial encounter; S80.01XA Contusion of right knee, initial encounter; G89.4 Chronic pain syndrome; E13.40 Other specified diabetes mellitus with diabetic neuropathy, unspecified; G47.33 Obstructive sleep apnea (adult) (pediatric); I10 Essential (primary) hypertension; E03.9 Hypothyroidism, unspecified; J44.9 Chronic obstructive pulmonary disease, unspecified; F17.210 Nicotine dependence, cigarettes, uncomplicated; W10.9XXA Fall (on) (from) unspecified stairs and steps, initial encounter; Z88.0 Allergy status to penicillin; Z01.812 Encounter for preprocedural laboratory examination; Z20.822 Contact with and (suspected) exposure to COVID-19; Z79.84 Long term (current) use of oral hypoglycemic drugs; Z79.899 Other long term (current) drug therapy
CPT/HCPCS: 20610; 36415; 77002; 82948; J2001 ×2; J2250; J2704; J3010; J3301; Q9967; U0002; 77003

== ENCOUNTER → 2022-10-03 | Day surgery (SDC) | payer MEDICARE ==
[2022-10-02 13:03] LABS: ANION GAP 10.9 mmol/L (8-16); CALCIUM 8.9 mg/dL (8.4-10.2); CREATININE, SERUM 0.81 mg/dL (0.57-1.11); POTASSIUM 3.9 mmol/L (3.5-5.1)
[~2022-10-03] MED LIST changes: +BUPIVACAINE 0.25% 30ML SDV ONE; -FENTANYL CITRATE/PF 100MCG/2 ML INJ ONE; +GLYCOPYRROLATE INJ 0.2 MG/ML VIAL ONE; +KETAMINE HCL INJ 50 MG/ML 10 ML VIAL ONE; +LACTATED RINGER'S 1,000 ML ONE; -MIDAZOLAM HCL 2 MG/2 ML VIAL ONE; +SODIUM CHLORIDE 0.9% 100 ML ONE
[2022-10-03 06:43] VITALS: BP 131/66; PULSE 57; RESP 18; TEMP 97.9; O2SAT 100
== END | disposition home or self-care (01) ==
LOC: OR 07:14
PROVIDERS: ATTEND Physical Medicine & Rehabilitation Pain Medicine
DX: M53.3 Sacrococcygeal disorders, not elsewhere classified (principal); M46.1 Sacroiliitis, not elsewhere classified; G89.4 Chronic pain syndrome; M54.16 Radiculopathy, lumbar region; M17.11 Unilateral primary osteoarthritis, right knee; M94.261 Chondromalacia, right knee; M16.12 Unilateral primary osteoarthritis, left hip; M70.61 Trochanteric bursitis, right hip; E11.42 Type 2 diabetes mellitus with diabetic polyneuropathy; I10 Essential (primary) hypertension; E03.9 Hypothyroidism, unspecified; E78.00 Pure hypercholesterolemia, unspecified; Z88.0 Allergy status to penicillin; Z01.810 Encounter for preprocedural cardiovascular examination; Z01.812 Encounter for preprocedural laboratory examination; Z79.899 Other long term (current) drug therapy; Z91.81 History of falling
CPT/HCPCS: 36415; 64999; 80048; 93005; J2001 ×2; J2704; J3301; J7050; J7121; Q9967; 77003